=== PATIENT | male | born 1990 | race African-American/Black ===

== ENCOUNTER 2021-08-16 16:00 | Emergency (ER) | payer SELFPAY | END 2021-08-16 16:04 | disposition left against medical advice (07) | LOC: ERS 16:00 | DX: Z53.21 Procedure and treatment not carried out due to patient leaving prior to being seen by health care provider (principal) ==

== ENCOUNTER 2021-08-22 22:28 | Emergency (ER) | payer SELFPAY | END 2021-08-22 22:40 | disposition left against medical advice (07) | LOC: ERS 22:28 | DX: Z53.21 Procedure and treatment not carried out due to patient leaving prior to being seen by health care provider (principal) ==